=== PATIENT | female | born 1960 | race Caucasian/White ===

== ENCOUNTER 2023-07-20 00:21 | Emergency (ER) | payer MEDICAID ==
[~2023-07-20] VITALS: Ht 154.9 cm; Wt 59.5 kg
[2023-07-20 00:54] LABS: BILIRUBIN,URINE NEGATIVE (Neg); CLARITY,URINE SLIGHTLY CLOUDY (Clear); COLOR,URINE YELLOW (Yellow); GLUCOSE, URINE NEGATIVE (Neg); KETONES,URINE NEGATIVE (Neg); LEUKOCYTE ESTERASE ,URINE SMALL (Neg); NITRITES, URINE NEGATIVE (Neg); OCCULT BLOOD,URINE TRACE-INTACT (Neg); PROTEIN,URINE NEGATIVE (Neg); UROBILINOGEN,URINE 0.2 E.U/dL (0.2-1.0)
[2023-07-20 00:58] LABS: UA COLLECTION TYPE CLN CATCH MIDSTREAM
[2023-07-20 01:00] LABS: BACTERIA,URINE 1+ /HPF (Neg); HYALINE CASTS 0-3 /LPF (NEGATIVE); MUCUS STRANDS FEW /LPF (Neg); RBC,URINE 0-2 /HPF (0-2); SQUAMOUS EPITHELIAL CELL,UR MODERATE /LPF (FEW); WBC CLUMPS,URINE MODERATE /HPF (NEGATIVE)
[2023-07-20] MEDS ORDERED: CEPH-585 PO (02:54)
[2023-07-20] MEDS ORDERED: cephalexin 250mg capsule PO ONE (02:55)
[2023-07-20 03:06] VITALS: BP 120/55; PULSE 68; RESP 16; TEMP 97.8; O2SAT 98
== END 2023-07-20 03:07 | disposition home or self-care (01) ==
LOC: ER 00:22
DX: N39.0 Urinary tract infection, site not specified (principal); Z88.0 Allergy status to penicillin; Z79.899 Other long term (current) drug therapy
CPT/HCPCS: 81001; 87088; 99283